=== PATIENT | male | born 1995 | race Caucasian/White ===

== ENCOUNTER 2019-04-20 17:32 | Emergency (ER) | payer MEDICAID ==
[~2019-04-20] VITALS: Ht 162.6 cm; Wt 68.0 kg
[2019-04-20 17:32] VITALS: BP_SYST 142
[2019-04-20] MEDS ORDERED: ceFAZolin SODIUM 1 GM VIAL IM ONE (18:00)
[2019-04-20] MEDS ORDERED: LIDOCAINE/EPI 2% 1:100000 20 ML VIAL INJ ONE (18:00)
[2019-04-20] MEDS ORDERED: DIPH-TET-PERTUS Vaccine 0.5 ML VIAL (ADACEL) I.M. ONE (18:00)
[2019-04-20] MEDS ORDERED: SODIUM BICARBONATE 8.4% VIAL 50 MEQ/50 ML VIAL INJ ONE (18:00)
[2019-04-20 19:10] VITALS: BP_SYST 142
== END 2019-04-20 19:09 | disposition home or self-care (01) ==
LOC: SED 17:32
DX: S51.811A Laceration without foreign body of right forearm, initial encounter (principal); R03.0 Elevated blood-pressure reading, without diagnosis of hypertension; W26.8XXA Contact with other sharp object(s), not elsewhere classified, initial encounter; Y93.89 Activity, other specified; Y92.89 Other specified places as the place of occurrence of the external cause; Y99.8 Other external cause status
CPT/HCPCS: 12032; 90471; 90715; 96372; 99284; J0690

== ENCOUNTER 2019-05-01 15:17 | Emergency (ER) | payer MEDICAID ==
[~2019-05-01] VITALS: Ht 165.1 cm; Wt 68.0 kg
[2019-05-01 15:22] VITALS: BP_SYST 129
--- NOTE | 2019-05-01 15:24 | NUR ---
Patient triaged and placed in waiting room. VSS and patient appears in no acute distress at this time. Accompanied by self, awaiting available bed, and MD notified of need for MSE.
--- NOTE | 2019-05-01 16:01 | NUR ---
[facility] report given to RN
--- NOTE | 2019-05-01 16:15 | NUR ---
ER DAVEY Wen at bedside examining patient and removing cornelio to R arm.
--- NOTE | 2019-05-01 16:18 | NUR ---
Pt [id number] ambulated into ED for staple removal to R forearm placed x 2 weeks ago. No discharge/active bleeding present. No other injuries/complaints per pt/noted. Will continue to monitor.
[2019-05-01 16:48] VITALS: BP_SYST 133
--- NOTE | 2019-05-01 16:48 | NUR ---
Patient given written and verbal discharge instructions and verbalizes understanding. TERRY Avina discussed with patient the results and treatment provided. Patient in stable condition. ID arm band removed. No Rx given. Patient educated on pain management and to follow up with PMD. Pain Scale 0. Opportunity for questions provided and answered. Medication side effect fact sheet provided.
== END 2019-05-01 16:48 | disposition home or self-care (01) ==
LOC: SED 15:17
DX: S51.811D Laceration without foreign body of right forearm, subsequent encounter (principal); W26.8XXD Contact with other sharp object(s), not elsewhere classified, subsequent encounter
CPT/HCPCS: 99282